=== PATIENT | female | born 1965 | race Caucasian/White ===

== ENCOUNTER → 2023-12-04 15:07 | Outpatient (REF) | payer OTHER, SELFPAY | LOC: RCS 15:07 | PROVIDERS: ATTENDING PHYSICIAN Nurse Practitioner Family | DX: R07.9 Chest pain, unspecified (principal); I10 Essential (primary) hypertension; E78.2 Mixed hyperlipidemia | CPT/HCPCS: 71046; 93005 ==

== ENCOUNTER → 2024-01-04 08:56 | Outpatient (REF) | payer OTHER, SELFPAY | LOC: RCS 08:56 | PROVIDERS: ATTENDING PHYSICIAN Nurse Practitioner Family; FAMILY PHYSICIAN Internal Medicine Geriatric Medicine | DX: R07.9 Chest pain, unspecified (principal); I10 Essential (primary) hypertension; E78.2 Mixed hyperlipidemia | CPT/HCPCS: 93017; 93306 ==

== ENCOUNTER 2025-02-11 18:26 | Emergency (ER) | payer OTHER, SELFPAY ==
[2025-02-11 18:31] VITALS: BP 132/73
[2025-02-11 19:34] VITALS: BP 104/63; BMI 25.8
--- NOTE | 2025-02-11 20:19 | ED.GENMED ---
History of Present Illness
General
Chief Complaint: Ear Problem
Source: patient
Exam Limitations: none
Time Seen by Provider: 02/11/25 19:21
Nursing documentation reviewed up to this point in time: agreed with
History of Present Illness
History of Present Illness:
Patient is a 59-year-old female who presents to the ER for evaluation. She reports she has had pain to the bilateral outer ears for the past 4-1/2 weeks. She saw her family doctor and was concerned about infection and they put her on Keflex. She
completed this 1 week without relief. She reports there is no inner ear pain. In addition she saw ENT Dr. Zaldivar who thought it may be TMJ and put her on Relafen and steroid cream however this has not relieved her symptoms. She reports she is now
very nauseous from the ear pain and has a headache. She reports she has' migraines,' which have not never been formally diagnosed. She reports she has had this constantly for the past year.
She denies any rash fever chills light sensitivity. Denies any nasal congestion neck pain.
Review of Systems
Review of Systems
Allergies reviewed?: Yes
All Other Systems: ROS reviewed and negative except as documented in HPI and ROS
Constitutional: Reports no symptoms; Denies fever, fatigue or chills
EENT: Reports other (b/l outer ear pain )
Respiratory: Reports no symptoms
Cardiac: Reports no symptoms
ABD/GI: Reports nausea; Denies vomiting or diarrhea
Skin: Reports no symptoms
Neurological: Reports headache; Denies dizzy
Endocrine: Reports no symptoms
Hematologic/Lymphatic: Reports no symptoms
Psychiatric: Reports no symptoms
Phy Exam
General Physical Exam
General Presentation: no apparent distress
General age: appears stated age
General Skin: warm and dry
General Habitus: normal
General Mental: alert
General Hydration: appears well hydrated
ENT Exam
ENT Exam: other (normal exam to b/l ears, nml TM , no redness or swelling to outer ear no lesions or rash )
Cardiovascular Exam
Cardiovascular Exam: regular rate/rhythm, no murmur and normal peripheral pulses
Pulmonary Exam
Pulmonary Exam: lungs clear and no respiratory distress
Neurological Exam
Neurological Exam: alert, oriented x3, no motor deficits and no sensory deficits
Course
Orders/Labs/Results
Orders:
Orders
02/11/25 20:20
CT Head W/o Iv Contrast Urgent
Comment:
Reason For Exam: headache
Ketorolac [Toradol] 30 mg IM NOW STA
Vital Signs
Initial and Last Documented VS:
Initial Vital Signs
Temp Pulse Resp BP Pulse Ox
98.5 F 71 16 132/73 99
02/11/25 18:31 02/11/25 18:31 02/11/25 18:31 02/11/25 18:31 02/11/25 18:31
Last Documented Vital Signs
Temp Pulse Resp BP Pulse Ox
98.5 F 56 18 104/63 97
02/11/25 18:31 02/11/25 19:34 02/11/25 19:34 02/11/25 19:34 02/11/25 19:34
MDM/Problems Addressed
MDM/Problems Addressed:
As documented patient has had outer ear pain for the past 4 and half weeks to bilateral ears. She has been seen by family doctor and Dr. Zaldivar treated for possible TMJ on anti-inflammatory and also was given a steroid cream. Symptoms continued
which prompted her to come to the ER. She presents awake alert no acute distress there is no obvious swelling or redness to ears she does complain of a headache but does get chronic headaches. Migraines have never been fully diagnosed. She has a
normal neurologic exam very odd affect CAT scan negative. Will need continued follow-up for reevaluation of symptoms no concerning signs at this time no fevers no rash. d/c w/ pt to again follow up with ENT.
*Pulse Oximetry
Patient hypoxic: no
*Critical Care Note
Total Time (30-74mins, 75-104mins- exclusive of procedures): Not Applicable
ED Attending Note
-
Portions of this chart may have been created with voice recognition software.� Occasional wrong word or��sound alike� substitutions may have occurred due to the inherent limitations of voice recognition software.
Discharge Plan
Departure
Patient Disposition: Home (Routine Discharge)
Date of Disposition: 02/11/25
Time of Disposition: 22:31
Patient with high blood pressure during this ER visit?: Yes
Condition: Fair
Covid-19: Not Applicable
Discharge Problem:
Chronic ear pain
Referrals:
Van Martines MD [Family Provider] -
Ephraim Zaldivar MD [Active] -
Activity Restrictions/Additional Instructions:
As discussed please follow-up with Dr. Zaldivar for further reevaluation of continued symptoms. You may continue to take ibuprofen for symptoms. Return if any worsening of symptoms.
Discharge Date and Time
Print Language: PORTUGUESE
[2025-02-11] MEDS: TORADOL 30 MG IM (20:25)
[2025-02-11 22:37] VITALS: BP 110/60
== END 2025-02-11 22:39 | disposition home or self-care (01) ==
LOC: EMR 18:26
PROVIDERS: EMERGENCY PHYSICIAN Student in an Organized Health Care Education/Training Program; FAMILY PHYSICIAN Internal Medicine Geriatric Medicine
DX: H92.03 Otalgia, bilateral (principal); G89.29 Other chronic pain
CPT/HCPCS: 96372; 99284; 70450